=== PATIENT | female | born 1955 | race Caucasian/White ===

== ENCOUNTER → 2017-09-03 | Outpatient (CLI) | payer MEDICAID ==
--- NOTE | 2017-09-03 09:28 | EKG REPORT ---
SEVERITY:- ABNORMAL ECG - SINUS RHYTHM PROBABLE INFERIOR INFARCT, OLD CONSIDER ANTERIOR INFARCT LATERAL LEADS ARE ALSO INVOLVED : Confirmed by: Kimberly Yen 03-Sep-2017 09:26:59
== END ==
LOC: OD 08:36
PROVIDERS: ATTEND Orthopaedic Surgery
DX: Z53.9 Procedure and treatment not carried out, unspecified reason (principal)
CPT/HCPCS: 93010

== ENCOUNTER 2017-09-10 06:20 | Day surgery (SDC) | payer MEDICAID ==
[2017-09-03 10:21] LABS: ABSOLUTE EOSINOPHILS # (AUTO) 0.1 10^3/uL (0.0-0.6); ABSOLUTE LYMPHOCYTES (AUTO) 1.9 10^3/uL (0.5-4.7); ABSOLUTE MONOCYTES (AUTO) 0.5 10^3/uL (0.1-1.4); ABSOLUTE NEUT (AUTO) 2.6 10^3/uL (1.7-8.2); BASOPHILS % (AUTO) 0.6 % (0-2); EOSINOPHILS % (AUTO) 2.2 % (0-6); HEMATOCRIT 40.8 % (36.0-47.0); HEMOGLOBIN 13.8 g/dL (12.0-15.5); LYMPHOCYTES % (AUTO) 37.3 % (13-45); MEAN CORPUSCULAR HEMOGLOBIN 30.2 pg (27.0-33.4); MEAN CORPUSCULAR VOLUME 89 fl (80-97); MONOCYTES % (AUTO) 9.7 % (3-13); PLATELET COUNT 245 10^3/uL (150-450); RED BLOOD COUNT 4.58 10^6/uL (3.72-5.28); RED CELL DISTRIBUTION WIDTH 13.4 % (11.5-14.0); SEGMENTED NEUTROPHILS % (AUTO) 50.2 % (42-78); TOTAL CELLS COUNTED % (AUTO) 100 %; WHITE BLOOD COUNT 5.2 10^3/uL (4.0-10.5)
[2017-09-03 10:40] LABS: ANION GAP 13 (5-19); BLOOD UREA NITROGEN 17 mg/dL (7-20); CALCIUM 9.5 mg/dL (8.4-10.2); CARBON DIOXIDE 23 mmol/L (22-30); CHLORIDE 106 mmol/L (98-107); GLUCOSE 154 mg/dL (75-110); POTASSIUM 4.2 mmol/L (3.6-5.0); SODIUM 142.1 mmol/L (137-145)
--- NOTE | 2017-09-03 11:19 | RADIOLOGY REPORT (SQ) ---
EXAM DESCRIPTION: CHEST PA/LATERAL COMPLETED DATE/TIME: 09/03/2017 9:18 am REASON FOR STUDY: PRE OP COMPARISON: None. NUMBER OF VIEWS: Two view. TECHNIQUE: Frontal and lateral radiographic views of the chest acquired. LIMITATIONS: None. FINDINGS: LUNGS AND PLEURA: No opacities, masses or pneumothorax. No pleural effusion. MEDIASTINUM AND HILAR STRUCTURES: No masses or contour abnormalities. HEART AND VASCULATURE: Heart normal size. No evidence for failure. BONY STRUCTURES: No acute findings. HARDWARE: None. OTHER: No other significant finding. IMPRESSION: NO SIGNIFICANT RADIOGRAPHIC FINDING IN THE CHEST. TECHNICAL DOCUMENTATION: JOB ID: [id number] [employer]- All Rights Reserved <Electronically signed by TONY SCRUGGS MD in [place]> 09/03/17 1119 MTDD
--- NOTE | 2017-09-03 13:02 | EKG REPORT ---
SEVERITY:- ABNORMAL ECG - SINUS RHYTHM PROBABLE INFERIOR INFARCT, OLD CONSIDER ANTERIOR INFARCT LATERAL LEADS ARE ALSO INVOLVED : Confirmed on behalf of: Kimberly Yen 03-Sep-2017 13:02:36
[~2017-09-10 06:20] MED LIST: CEFAZOLIN 2 GM/D5W RTU 2 GM/50 ML RTUPB IV PRN; LACTATED RINGERS 1000 ML IV PRN
[2017-09-10] MEDS ORDERED: BUPIVACAINE HCL 0.5 % INJ/PF 30 ML SDV ONE (07:12)
[2017-09-10] MEDS ORDERED: LIDOCAINE 1% INJ-PF (10 MG/ML) 30 ML SDV ONE (07:12)
[2017-09-10 07:17] LABS: BILIRUBIN,URINE NEGATIVE (NEGATIVE); COLOR,URINE YELLOW; GLUCOSE, URINE NEGATIVE (NEGATIVE); KETONES,URINE NEGATIVE (NEGATIVE); LEUKOCYTE ESTERASE,URINE LARGE (NEGATIVE); NITRITE,URINE NEGATIVE (NEGATIVE); PROTEIN,URINE NEGATIVE (NEGATIVE); URINE SPECIFIC GRAVITY 1.019; UROBILINOGEN,URINE NEGATIVE mg/dL (<2.0)
[2017-09-10 07:22] LABS: APPEARANCE,URINE CLEAR
[2017-09-10] MEDS ORDERED: MIDAZOLAM 2 MG/2 ML INJ ONE (08:21)
[2017-09-10] MEDS ORDERED: FENTANYL CITRATE INJ/PF 100 MCG/2 ML AMPUL ONE (08:21)
[2017-09-10] MEDS ORDERED: ONDANSETRON HCL INJ/PF 4 MG/2 ML SDV ONE (08:21)
[2017-09-10] MEDS ORDERED: PROPOFOL INJ 200 MG/20 ML VIAL IV ONE (08:21)
[2017-09-10] MEDS ORDERED: MEPERIDINE HCL/PF INJ 25 MG/1 ML DISP.SYRIN IV PRN (08:45)
[2017-09-10] MEDS ORDERED: DIPHENHYDRAMINE HCL 50 MG/ML VIAL IV PRN (08:45)
[2017-09-10] MEDS ORDERED: FENTANYL CITRATE INJ/PF 100 MCG/2 ML AMPUL IV PRN ×3 (08:45)
[2017-09-10] MEDS ORDERED: MORPHINE SULFATE 10 MG/ML INJ IV PRN (08:45)
[2017-09-10] MEDS ORDERED: PROMETHAZINE HCL INJ 25 MG/1 ML VIAL IV PRN (08:45)
[2017-09-10] MEDS ORDERED: HYDROCODONE/ACETAMINOPHEN 5-325 MG TABLET PO PRN (08:59)
[2017-09-10] MEDS ORDERED: ONDANSETRON HCL INJ/PF 4 MG/2 ML SDV IV PRN (08:59)
--- NOTE | 2017-09-10 08:59 | Operative Report ---
Operative Report DATE OF SURGERY: 09/10/17 PREOPERATIVE DIAGNOSIS: Left trigger thumb POSTOPERATIVE DIAGNOSIS: Same OPERATION: Left trigger thumb release SURGEON: LIZ PINEDA ANESTHESIA: LMAC COMPLICATIONS: None ESTIMATED BLOOD LOSS: Minimal PROCEDURE: Indication for above procedure: 62-year-old female presents my office for catching and locking of her left thumb. Patient failed conservative measures and thus the decision was made to proceed with operative intervention. Risks and benefits were explained patient verbalized understanding consented for the procedure. Procedure In Detail: Patient was seen and evaluated in the preoperative holding area. The LEFT upper extremity was initialized and marked. Patient received 2g of Ancef IV for bacterial prophylaxis. Patient was taken back to the operative room where transferred to the operative table. Once they were adequately anesthetized a nonsterile tourniquet was placed on the upper extremity. A surgical team debriefing was performed ensuring all instrumentation was available, the surgical procedure was discussed with possible concerns reviewed. A digital block was performed utilizing 10 mL 50:50 mixture of 0.5% Marcaine and 1% lidocaine without epinephrine. The upper extremity was prepped with chlorhexidine and alcohol and draped in a sterile fashion. A timeout was done identifying correct patient, procedure and extremity everyone in attendance agree with this and verbalized no concerns. The extremity was exsanguinated the tourniquet was inflated to 250 mmHg. Transverse skin incision was made centered over the volar MCP flexion crease of the thumb. The radial and ulnar neurovascular bundles were identified and retracted from the wound. The A1 carrol was identified and incised. The A1 carrol was released to the level of the oblique/AV carrol but not through the oblique carrol. The palmar aponeurotic carrol was released proximal to the A1 carrol. Patient was then awoken from MAC anesthesia and made a full crosstie inspector there is no evidence of residual triggering or locking. The wound was then copiously irrigated with normal saline. Skin was closed with interrupted 4-0 nylon suture. Wound was dressed with Xeroform and a soft dressing. Sponge counts, instrument counts, needle counts counts were correct. Patient was then awoken from anesthesia. Transferred from the operating room table to the operating room stretcher. There was no intraoperative complications patient tolerated procedure well stable to PACU. Postoperative plan: Patient will follow-up as scheduled for wound check. They will call with any questions or concerns.
--- NOTE | 2017-09-10 09:00 | PDOC DISCHARGE SUMMARY ---
Discharge Summary (SDC) - Discharge Final Diagnosis: Left trigger thumb Date of Surgery: 09/10/17 Discharge Date: 09/10/17 Condition: Good Treatment or Instructions: Schedule Follow Up w/ Dr. Joby Fabian @ [facility] to be seen in 10-14 days or as scheduled [place]: [place]: [place]: May remove dressing on postop day #3, keep incision covered and dry. Ice and elevate May begin finger range of motion attempting to make full fist. Stool softener of choice when on pain medication. Prescriptions: Hydrocodone/Acetaminophen [[place] 5-325 mg Tablet] 1 tab PO Q6 PRN #15 tablet PRN Reason: Referrals: JANE KAY MD [Primary Care Provider] - Discharge Diet: As Tolerated Respiratory Treatments at Home: Deep Breathing/Coughing Discharge Activity: No Lifting Over 10 Pounds, No Lifting/Push/Pulling Report the Following to Your Physician Immediately: Fever over 101 Degrees, Unusual Bleeding, Redness, Swelling, Warmth, Increased Soreness
[2017-09-10] MEDS ORDERED: ACETAMINOPHEN 325 MG TABLET ONE (09:58)
[2017-09-10] MEDS ORDERED: HYDROCODONE/ACETAMINOPHEN 5-325 MG TABLET ONE (11:09)
--- NOTE | 2017-09-10 13:04 | EKG REPORT ---
SEVERITY:- ABNORMAL ECG - SINUS RHYTHM PROBABLE INFERIOR INFARCT, AGE INDETERMINATE CONSIDER ANTERIOR INFARCT NONSPECIFIC ST-T CHANGES ANTEROLATERAL LEADS, UNCHANGED FROM 09/03/17 EKG. : Confirmed by: Patricio Saravia MD 10-Sep-2017 13:04:01
[2017-09-10 13:34] VITALS: BP 145/79
== END 2017-09-10 13:30 | disposition home or self-care (01) ==
LOC: OROUT 06:20
PROVIDERS: ATTEND Orthopaedic Surgery
PROC: 0LN80ZZ Release Left Hand Tendon, Open Approach (ICD-10-PCS; principal; 2017-09-10 08:30)
DX: M65.312 Trigger thumb, left thumb (principal); E11.9 Type 2 diabetes mellitus without complications; E78.00 Pure hypercholesterolemia, unspecified; Z88.2 Allergy status to sulfonamides; M79.7 Fibromyalgia
CPT/HCPCS: 26055; 93005 ×2; 36415; 82962; 85025; 80048; 81001; 83036; 71046; 93010 ×2; J3490 ×2; J2250; J3010; J2405; J2704; J0690; 1810